=== PATIENT | male | born 1960 | race Caucasian/White ===

== ENCOUNTER 2019-06-08 23:14 | Emergency (ER) | payer OTHER ==
[~2019-06-08] VITALS: Ht 172.7 cm; Wt 81.6 kg
[2019-06-09 01:21] VITALS: BP 106/76
[2019-06-09] MEDS ORDERED: TETANUS-DIPTH-ACEL PERTUSSIS 0.5ML SYRG IM ONE (01:30)
[2019-06-09] MEDS ORDERED: cefTRIAXone SOD 1,000 MG VL IM ONE (01:30)
[2019-06-09] MEDS ORDERED: HYDROcodone-ACET 10/325MG TAB PO ONE (01:30)
== END 2019-06-09 02:02 | disposition home or self-care (01) ==
LOC: ER 23:22
DX: S01.91XA Laceration without foreign body of unspecified part of head, initial encounter (principal); X58.XXXA Exposure to other specified factors, initial encounter; Y93.89 Activity, other specified; Y92.89 Other specified places as the place of occurrence of the external cause; Y99.8 Other external cause status
CPT/HCPCS: 12004; 70450; 90471; 90715; 96372; 99284; J0696